=== PATIENT | male | born 1955 | race Caucasian/White ===

== ENCOUNTER 2018-10-14 11:39 | Observation (INO) | payer BC, OTHER ==
--- NOTE | 2018-10-14 11:59 | EDM.PDOC ---
ED HPI GENERAL MEDICAL PROBLEM - General Chief Complaint: Chest Pain Time Seen by Provider: 10/14/18 11:39 Source of Information: Reports: Patient, EMS History Limitations: Reports: No Limitations - History of Present Illness INITIAL COMMENTS - FREE TEXT/NARRATIVE: 63 y.o.w.m with H/o CAD, S/P CABG came the clinic because of SSCP, radiating to his right shoulder. Pt received ASA and NIG SL in the clinc. Pt's pain has improved to 4/10. Pt's ECG showed T wave inversion in the ant lat leads. No old ECG is available. Pt has chronic right shoulder pain. No N/V/D no SOB. Noother acute med issues. 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 VENDOR MANAGEMENT ASSOCIATE) Right Shoulder Pain Score (Numeric/FACES): 4 - Related Data Allergies Allergy/AdvReac Type Severity Reaction Status Date / Time No Known Allergies Allergy Verified 10/14/18 11:48 Home Meds: Home Meds Cyclobenzaprine [Flexeril] 10 mg PO BEDTIME #30 tablet 10/15/18 [Rx] Diclofenac Sodium [Voltaren] 75 mg PO BIDMEALS #30 tab.ec 10/15/18 [Rx] ED ROS GENERAL - Review of Systems Review Of Systems: See Below Constitutional: Reports: No Symptoms HEENT: Reports: No Symptoms Respiratory: Reports: Pleuritic Chest Pain Cardiovascular: Reports: No Symptoms Endocrine: Reports: No Symptoms GI/Abdominal: Reports: No Symptoms : Reports: No Symptoms Musculoskeletal: Reports: Shoulder Pain (right side fo rseveral years) Skin: Reports: No Symptoms Neurological: Reports: No Symptoms Psychiatric: Reports: No Symptoms Hematologic/Lymphatic: Reports: No Symptoms Immunologic: Reports: No Symptoms ED EXAM, GENERAL - Physical Exam Exam: See Below Exam Limited By: No Limitations General Appearance: Alert, WD/WN, Mild Distress, Moderate Distress Eye Exam: Bilateral Eye: Normal Inspection Ears: Normal External Exam Ear Exam: Bilateral Ear: Auricle Normal Nose: Normal Inspection, Normal Mucosa, No Blood Throat/Mouth: Normal Inspection, Normal Lips, Normal Voice, No Airway Compromise , Other (poor dentition) Head: Atraumatic, Normocephalic Neck: Normal Inspection, Supple, Non-Tender, Full Range of Motion Respiratory/Chest: No Respiratory Distress, Lungs Clear, Normal Breath Sounds Cardiovascular: Normal Peripheral Pulses, Regular Rate, Rhythm, No Edema, No Gallop Peripheral Pulses: 1+: Brachial (L) GI/Abdominal: Normal Bowel Sounds, Soft, Non-Tender, No Organomegaly, Pelvis Stable (Male) Exam: No Hernia Rectal (Males) Exam: Deferred Back Exam: Normal Inspection, Full Range of Motion Extremities: Normal Inspection, Normal Range of Motion, Non-Tender Neurological: Alert, Oriented, CN II-XII Intact, Normal Cognition, Normal Gait Psychiatric: Normal Affect Skin Exam: Warm, Dry, Intact, Normal Color, No Rash Lymphatic: No Adenopathy EKG INTERPRETATION EKG Date: 10/14/18 Time: 12:05 Rhythm: NSR Rate (Beats/Min): 58 Altha: Normal P-Wave: Present QRS: Normal ST-T: Normal (T wave inversions ant lat leads) QT: Normal Comparison: NA - No Prior EKG Course - Vital Signs Text/Narrative:: 63 y.o.w.m with H/o CAD, S/P CABG came the clinic because of SSCP, radiating to his right shoulder. Pt received ASA and NIG SL in the clinc. Pt's pain has improved to 4/10. Pt's ECG showed T wave inversion in the ant lat leads. No old ECG is available. Pt has chronic right shoulder pain. No N/V/D no SOB. Noother acute med issues. BP 169/79 RR 18 Pulse ox 98% on RA Pulse 64 Temp 36.8 PE: WNWD W M with pleuritic chest pain, chronic right shoulder pain and T wave inversion ant/lat leads. Imaging: CXR: NAD as per RAD Labs: CBC, BMP DDimer and Troponin were all nl. Impression: Pleuritic C/P with T wave in the ant lat leads of the ECG, chronic right shoulder pain. Tx: NTG 1 "" Reexam: Chest pain subsided, BP improved, Shoulder paijn was still present 12.27 pm Consultation: Dr. Martinez, Hospitalist: Accepted the pt for admission to OBS Plan: Admit to tele OBS Last Recorded V/S: Last Vital Signs Temp 36.3 C 10/15/18 09:00 Pulse 54 L 10/15/18 05:30 Resp 16 10/15/18 09:00 BP 145/85 H 10/15/18 09:00 Pulse Ox 95 10/15/18 09:00 - Orders/Labs/Meds Labs: Laboratory Tests 10/14/18 10/14/18 10/14/18 Range/Units 12:25 12:25 12:25 WBC (4.5-12.0) X10-3/uL RBC (4.30-5.75) x10(6)uL Hgb (13.5-17.8) g/dL Hct (30.0-51.3) % MCV (80-96) fL MCH (27.7-33.6) pg MCHC (32.2-35.4) g/dL RDW (11.5-15.5) % Plt Count (125-369) X10(3)uL MPV (7.4-10.4) fL Neut % (Auto) (46-82) % Lymph % (Auto) (13-37) % Power % (Auto) (4-12) % Eos % (Auto) (1.0-5.0) % Baso % (Auto) (0-2) % Neut # (Auto) (1.6-8.3) # Lymph # (Auto) (0.6-5.0) # Power # (Auto) (0.0-1.3) # Eos # (Auto) (0.0-0.8) # Baso # (Auto) (0.0-0.2) # D-Dimer, Quantitative 0.19 (0.0-0.59) mg/LFEU Sodium 140 (135-145) mmol/L Potassium 4.5 (3.5-5.3) mmol/L Chloride 104 (100-110) mmol/L Carbon Dioxide 28 (21-32) mmol/L BUN 10 (7-18) mg/dL Creatinine 1.0 (0.70-1.30) mg/dL Est Cr Clr Drug Dosing 80.10 mL/min Estimated GFR (MDRD) > 60 (>60) BUN/Creatinine Ratio 10.0 (9-20) Glucose 107 (80-116) mg/dL Calcium 8.8 (8.6-10.2) mg/dL Troponin I 0.017 (<0.017-0.056) ng/mL 10/14/18 Range/Units 12:25 WBC 7.4 (4.5-12.0) X10-3/uL RBC 5.58 (4.30-5.75) x10(6)uL Hgb 16.1 (13.5-17.8) g/dL Hct 46.1 (30.0-51.3) % MCV 82.7 (80-96) fL MCH 28.9 (27.7-33.6) pg MCHC 35.0 (32.2-35.4) g/dL RDW 12.8 (11.5-15.5) % Plt Count 249 (125-369) X10(3)uL MPV 7.4 (7.4-10.4) fL Neut % (Auto) 65.6 (46-82) % Lymph % (Auto) 17.1 (13-37) % Power % (Auto) 9.4 (4-12) % Eos % (Auto) 5 (1.0-5.0) % Baso % (Auto) 3 H (0-2) % Neut # (Auto) 4.8 (1.6-8.3) # Lymph # (Auto) 1.3 (0.6-5.0) # Power # (Auto) 0.7 (0.0-1.3) # Eos # (Auto) 0.3 (0.0-0.8) # Baso # (Auto) 0.3 H (0.0-0.2) # D-Dimer, Quantitative (0.0-0.59) mg/LFEU Sodium (135-145) mmol/L Potassium (3.5-5.3) mmol/L Chloride (100-110) mmol/L Carbon Dioxide (21-32) mmol/L BUN (7-18) mg/dL Creatinine (0.70-1.30) mg/dL Est Cr Clr Drug Dosing mL/min Estimated GFR (MDRD) (>60) BUN/Creatinine Ratio (9-20) Glucose (80-116) mg/dL Calcium (8.6-10.2) mg/dL Troponin I (<0.017-0.056) ng/mL Meds: Medications Discontinued Medications Generic Name Dose Route Start Last Admin Trade Name Freq PRN Reason Stop Dose Admin Cyclobenzaprine HCl 10 mg 10/14/18 21:00 10/14/18 22:07 Flexeril PO 10 mg BEDTIME MARLEY Administration Diclofenac Sodium 75 mg 10/14/18 18:00 10/15/18 07:50 Voltaren PO 75 mg BIDMEALS MARLEY Administration Nitroglycerin 1 gm 10/14/18 12:02 10/14/18 12:10 Nitro-Bid 2% TOP 10/14/18 12:03 1 gm ONETIME ONE Administration Departure - Departure Time of Disposition: 17:00 Disposition: Refer to Observation Condition: Fair Clinical Impression: Chest pain
[2018-10-14] MEDS ORDERED: Nitroglycerin 2% Oint 1 GM UD Packet TOP ONE (12:02)
--- NOTE | 2018-10-14 15:19 | CR ---
INDICATION: Chest pain. CHEST: A single portable AP upright view of the chest was obtained 10/14/18 and compared with clinic films of the same date, PA and laterals, and again revealed the heart to be enlarged with tortuous aorta calcified in the arch area , post median sternotomy with mitral valve replacement. Heavy markings are noted in the lower lung pearl, left much greater than right , making it difficult to exclude patchy bronchopneumonia in the left lower lobe especially but also to a minimal degree at the right lung base. No pleural effusion or gross consolidating pneumonia was identified. Overlying EKG leads are noted. MTDD
[2018-10-14] MEDS: Diclofenac Sodium 75 MG Tab.EC PO SCH (18:57)
[2018-10-14] MEDS ORDERED: Cyclobenzaprine 10 MG Tab PO SCH (21:00)
[2018-10-15] MEDS: Diclofenac Sodium 75 MG Tab.EC PO SCH (07:50)
--- NOTE | 2018-10-15 08:46 | PCM.HP ---
H&P History of Present Illness - General Date of Service: 10/15/18 Admit Problem/Dx: Admission Diagnosis/Problem Admission Diagnosis/Problem Chest pain at rest Source of Information: Patient, Family History Limitations: Reports: No Limitations - History of Present Illness Initial Comments - Free Text/Narative: Jeff is a 63-year-old male with moderate pain in the right side of chest related to the back. Pain is worse with lifting movement noted addition started yesterday morning was seen in the clinic and then the ED and admit. This morning the pain is resolved there is no association with shortness of breath fever chills no cough. Mr. Bolaños has a history of coronary disease and had bypass grafting 15 years. He works as a welder gas tungsten arc. Right Shoulder Pain Score (Numeric/FACES): 2 - Related Data Allergies/Adverse Reactions: Allergies Allergy/AdvReac Type Severity Reaction Status Date / Time No Known Allergies Allergy Verified 10/14/18 11:48 Home Medications: Home Meds NK [No Known Home Meds] 10/14/18 [History] Past Medical History HEENT History: Reports: Impaired Vision Cardiovascular History: Reports: High Cholesterol, Hypertension - Infectious Disease History Infectious Disease History: Reports: None - Past Surgical History Cardiovascular Surgical History: Reports: Coronary Artery Bypass Other Cardiovascular Surgeries/Procedures: He had an open heart surgery before. Social & Family History - Family History Cardiac: Reports: [place], Prior Cardiac Arrest Oncologic: Reports: Other (See Below) Other Oncologic Family History: He cant remember what type of cancer but he's certain that one of his family member of cancer. - Tobacco Use Smoking Status *Q: Former Smoker Years of Tobacco use: 20 Used Tobacco, but Quit: Yes Month/Year Tobacco Last Used: 27 years ago Second Hand Smoke Exposure: No - Caffeine Use Caffeine Use: Reports: Coffee, Soda Caffeine Use Comment: He drinks coffee everyday. He seldom drink soda - Alcohol Use Days Per Week of Alcohol Use: 7 Number of Drinks Per Day: 2 Total Drinks Per Week: 14 Date of Last Drink: 10/13/18 Time of Last Drink: 23:30 - Recreational Drug Use Recreational Drug Use: No H&P Review of Systems - Review of Systems: Review Of Systems: ROS reveals no pertinent complaints other than HPI. Exam - Exam Exam: See Below - Vital Signs Vital Signs: Last Vital Signs Temp 97.5 F 10/15/18 05:30 Pulse 54 L 10/15/18 05:30 Resp 20 10/15/18 05:30 BP 152/88 H 10/15/18 05:30 Pulse Ox 95 10/15/18 05:30 Weight: 96.644 kg - Exam General: Alert, Oriented, 4 HEENT: PERRLA, Hearing Intact, Mucosa Moist & [place], Nares Patent, Normal Nasal Septum, Posterior Pharynx Clear, Conjunctiva Clear, EOMI, EACs Clear, TMs Clear Neck: Supple, Trachea Midline, 2 Lungs: Clear to Auscultation, Normal Respiratory Effort Cardiovascular: Regular Rate, Regular Rhythm GI/Abdominal Exam: Normal Bowel Sounds, Soft, Non-Tender, No Organomegaly, No Distention, No Abnormal Bruit, No Mass, Pelvis Stable (Male) Exam: Deferred Rectal (Males) Exam: Deferred Back Exam: Normal Inspection, Muscle Spasm, Other (Right parascapular muscle point tenderness noted on palpation.) Extremities: Normal Inspection, Normal Range of Motion, Non-Tender, No Pedal Edema, Normal Capillary Refill Skin: Warm, Dry, Intact Neurological: Cranial Nerves Intact, Reflexes Equal Bilateral Neuro Extensive - Mental Status: Alert, Oriented x3, Normal Mood/Affect, Normal Cognition Neuro Extensive - Motor, Sensory, Reflexes: CN II-XII Intact, Normal Gait, Normal Reflexes Psychiatric: Alert, Normal Affect, Normal Mood - Patient Data Lab Results Last 24 hrs: Laboratory Results - last 24 hr 10/14/18 10/14/18 10/14/18 Range/Units 12:25 12:25 12:25 WBC (4.5-12.0) X10-3/uL RBC (4.30-5.75) x10(6)uL Hgb (13.5-17.8) g/dL Hct (30.0-51.3) % MCV (80-96) fL MCH (27.7-33.6) pg MCHC (32.2-35.4) g/dL RDW (11.5-15.5) % Plt Count (125-369) X10(3)uL MPV (7.4-10.4) fL Neut % (Auto) (46-82) % Lymph % (Auto) (13-37) % [place] % (Auto) (4-12) % Eos % (Auto) (1.0-5.0) % Baso % (Auto) (0-2) % Neut # (Auto) (1.6-8.3) # Lymph # (Auto) (0.6-5.0) # [place] # (Auto) (0.0-1.3) # Eos # (Auto) (0.0-0.8) # Baso # (Auto) (0.0-0.2) # D-Dimer, Quantitative 0.19 (0.0-0.59) mg/LFEU Sodium 140 (135-145) mmol/L Potassium 4.5 (3.5-5.3) mmol/L Chloride 104 (100-110) mmol/L Carbon Dioxide 28 (21-32) mmol/L BUN 10 (7-18) mg/dL Creatinine 1.0 (0.70-1.30) mg/dL Est Cr Clr Drug Dosing 80.10 mL/min Estimated GFR (MDRD) > 60 (>60) BUN/Creatinine Ratio 10.0 (9-20) Glucose 107 (80-116) mg/dL Calcium 8.8 (8.6-10.2) mg/dL Total Bilirubin (0.1-1.3) mg/dL AST (5-25) IU/L ALT (12-36) U/L Alkaline Phosphatase (56-112) IU/L Troponin I 0.017 (<0.017-0.056) ng/mL Total Protein (6.0-8.0) g/dL Albumin (3.2-4.6) g/dL Globulin g/dL Albumin/Globulin Ratio 10/14/18 10/15/18 10/15/18 Range/Units 12:25 06:25 06:25 WBC 7.4 7.9 (4.5-12.0) X10-3/uL RBC 5.58 5.27 (4.30-5.75) x10(6)uL Hgb 16.1 14.8 (13.5-17.8) g/dL Hct 46.1 44.1 (30.0-51.3) % MCV 82.7 83.6 (80-96) fL MCH 28.9 28.1 (27.7-33.6) pg MCHC 35.0 33.6 (32.2-35.4) g/dL RDW 12.8 12.5 (11.5-15.5) % Plt Count 249 239 (125-369) X10(3)uL MPV 7.4 7.7 (7.4-10.4) fL Neut % (Auto) 65.6 58.9 (46-82) % Lymph % (Auto) 17.1 24.7 (13-37) % [place] % (Auto) 9.4 10.0 (4-12) % Eos % (Auto) 5 6 H (1.0-5.0) % Baso % (Auto) 3 H 1 (0-2) % Neut # (Auto) 4.8 4.7 (1.6-8.3) # Lymph # (Auto) 1.3 1.9 (0.6-5.0) # [place] # (Auto) 0.7 0.8 (0.0-1.3) # Eos # (Auto) 0.3 0.4 (0.0-0.8) # Baso # (Auto) 0.3 H 0.1 (0.0-0.2) # D-Dimer, Quantitative (0.0-0.59) mg/LFEU Sodium 139 (135-145) mmol/L Potassium 4.0 (3.5-5.3) mmol/L Chloride 105 (100-110) mmol/L Carbon Dioxide 27 (21-32) mmol/L BUN 12 (7-18) mg/dL Creatinine 1.0 (0.70-1.30) mg/dL Est Cr Clr Drug Dosing 80.10 mL/min Estimated GFR (MDRD) > 60 (>60) BUN/Creatinine Ratio 12.0 (9-20) Glucose 97 (80-116) mg/dL Calcium 8.5 L (8.6-10.2) mg/dL Total Bilirubin 0.6 (0.1-1.3) mg/dL AST 14 (5-25) IU/L ALT 29 (12-36) U/L Alkaline Phosphatase 74 (56-112) IU/L Troponin I (<0.017-0.056) ng/mL Total Protein 6.7 (6.0-8.0) g/dL Albumin 3.1 L (3.2-4.6) g/dL Globulin 3.6 g/dL Albumin/Globulin Ratio 0.9 10/15/18 Range/Units 06:25 WBC (4.5-12.0) X10-3/uL RBC (4.30-5.75) x10(6)uL Hgb (13.5-17.8) g/dL Hct (30.0-51.3) % MCV (80-96) fL MCH (27.7-33.6) pg MCHC (32.2-35.4) g/dL RDW (11.5-15.5) % Plt Count (125-369) X10(3)uL MPV (7.4-10.4) fL Neut % (Auto) (46-82) % Lymph % (Auto) (13-37) % [place] % (Auto) (4-12) % Eos % (Auto) (1.0-5.0) % Baso % (Auto) (0-2) % Neut # (Auto) (1.6-8.3) # Lymph # (Auto) (0.6-5.0) # [place] # (Auto) (0.0-1.3) # Eos # (Auto) (0.0-0.8) # Baso # (Auto) (0.0-0.2) # D-Dimer, Quantitative (0.0-0.59) mg/LFEU Sodium (135-145) mmol/L Potassium (3.5-5.3) mmol/L Chloride (100-110) mmol/L Carbon Dioxide (21-32) mmol/L BUN (7-18) mg/dL Creatinine (0.70-1.30) mg/dL Est Cr Clr Drug Dosing mL/min Estimated GFR (MDRD) (>60) BUN/Creatinine Ratio (9-20) Glucose (80-116) mg/dL Calcium (8.6-10.2) mg/dL Total Bilirubin (0.1-1.3) mg/dL AST (5-25) IU/L ALT (12-36) U/L Alkaline Phosphatase (56-112) IU/L Troponin I < 0.017 L (<0.017-0.056) ng/mL Total Protein (6.0-8.0) g/dL Albumin (3.2-4.6) g/dL Globulin g/dL Albumin/Globulin Ratio Result Diagrams: 10/15/18 06:25 10/15/18 06:25 EKG INTERPRETATION Rhythm: NSR - Problem List (1) Myofascial pain SNOMED Code(s): 383223455 ICD Code: M79.18 - MYALGIA, OTHER SITE Status: Acute Current Visit: Yes (2) HTN (hypertension) SNOMED Code(s): 59808294 ICD Code: I10 - ESSENTIAL (PRIMARY) HYPERTENSION Status: Chronic Current Visit: Yes Qualifiers: Hypertension type: essential hypertension Qualified Code(s): I10 - Essential (primary) hypertension (3) CAD (coronary artery disease) SNOMED Code(s): 79884329 ICD Code: I25.10 - ATHSCL HEART DISEASE OF [place] CORONARY ARTERY W/O ANG PCTRS Status: Chronic Current Visit: Yes Qualifiers: Coronary Disease-Associated Artery/Lesion type: bypass graft Associated angina: without angina (4) HLD (hyperlipidemia) SNOMED Code(s): 12414756 ICD Code: E78.5 - HYPERLIPIDEMIA, UNSPECIFIED Status: Chronic Current Visit: Yes Qualifiers: Hyperlipidemia type: unspecified Qualified Code(s): E78.5 - Hyperlipidemia , unspecified Problem List Initiated/Reviewed/Updated: Yes Orders Last 24hrs: Active Orders 24 hr Category Date Time Status Patient Status [ADT] Routine ADT 10/14/18 12:54 Active Oxygen Therapy [RC] PRN Care 10/14/18 12:54 Active Telemetry Monitoring [Cardiac Monitoring] [RC] 08,16,00 Care 10/14/18 13:30 Active Up With Assistance [RC] ASDIRECTED Care 10/14/18 12:54 Active Vital Signs [RC] Q4H Care 10/14/18 12:54 Active Cyclobenzaprine [Flexeril] Med 10/14/18 21:00 Active 10 mg PO BEDTIME Diclofenac Sodium [Voltaren] Med 10/14/18 18:00 Active 75 mg PO BIDMEALS Resuscitation Status Routine Resus Stat 10/14/18 12:54 Ordered Medication Orders Cyclobenzaprine HCl (Flexeril) 10 mg PO BEDTIME [facility] Last Admin: 10/14/18 22:07 Dose: 10 mg Diclofenac Sodium (Voltaren) 75 mg PO BIDMEALS [facility] Last Admin: 10/15/18 07:50 Dose: 75 mg Admin: 10/14/18 18:57 Dose: 75 mg Assessment/Plan Comment:: His pain is improved, he's had negative cardiac enzymes. I believe the pain is musculoskeletal in origin. I'll discharge him home with lifting restrictions at work. See PCP Next week.Take Flexeril; and Diclofenac
== END 2018-10-15 09:33 | disposition home or self-care (01) ==
LOC: FB.ED 11:39 → FB.MS 13:05
PROVIDERS: ADMIT Emergency Medicine; ATTEND Family Medicine
DX: M79.18 Myalgia, other site (principal); I25.10 Atherosclerotic heart disease of native coronary artery without angina pectoris; I10 Essential (primary) hypertension; E78.00 Pure hypercholesterolemia, unspecified; Z95.1 Presence of aortocoronary bypass graft; Z87.891 Personal history of nicotine dependence; Z82.49 Family history of ischemic heart disease and other diseases of the circulatory system; Z79.899 Other long term (current) drug therapy
CPT/HCPCS: 36415; 71045; 80048; 80053; 84484; 85025; 85379; 99285; A9270; G0378